=== PATIENT | male | born 1940 | race Caucasian/White ===

== ENCOUNTER 2018-09-29 12:40 | Observation (INO) | payer MEDICARE, OTHER ==
[2018-09-29] MEDS ORDERED: ASPIRIN 81 MG TABLET, CHEWABLE PO ONE (12:42)
[2018-09-29 13:07] LABS: ABSOLUTE EOSINOPHILS # (AUTO) 0.1 10^3/uL (0.0-0.6); ABSOLUTE LYMPHOCYTES (AUTO) 1.5 10^3/uL (0.5-4.7); ABSOLUTE MONOCYTES (AUTO) 0.6 10^3/uL (0.1-1.4); ABSOLUTE NEUT (AUTO) 3.1 10^3/uL (1.7-8.2); BASOPHILS % (AUTO) 0.6 % (0-2); EOSINOPHILS % (AUTO) 1.4 % (0-6); HEMATOCRIT 47.8 % (37.9-51.0); HEMOGLOBIN 16.5 g/dL (13.5-17.0); LYMPHOCYTES % (AUTO) 28.1 % (13-45); MEAN CORPUSCULAR HEMOGLOBIN 31.5 pg (27.0-33.4); MEAN CORPUSCULAR HGB CONC 34.6 g/dL (32.0-36.0); MEAN CORPUSCULAR VOLUME 91 fl (80-97); MONOCYTES % (AUTO) 10.8 % (3-13); PLATELET COUNT 174 10^3/uL (150-450); RED BLOOD COUNT 5.25 10^6/uL (4.35-5.55); RED CELL DISTRIBUTION WIDTH 13.9 % (11.5-14.0); SEGMENTED NEUTROPHILS % (AUTO) 59.1 % (42-78); TOTAL CELLS COUNTED % (AUTO) 100 %; WHITE BLOOD COUNT 5.2 10^3/uL (4.0-10.5)
[2018-09-29] MEDS ORDERED: RINGERS SOLUTION,LACTATED 1,000 ML IV ONE (13:18)
--- NOTE | 2018-09-29 13:18 | RADIOLOGY REPORT (SQ) ---
EXAM DESCRIPTION: CHEST SINGLE VIEW COMPLETED DATE/TIME: 09/29/2018 1:11 pm REASON FOR STUDY: cp COMPARISON: None. EXAM PARAMETERS: NUMBER OF VIEWS: One view. TECHNIQUE: Single frontal radiographic view of the chest acquired. RADIATION DOSE: NA LIMITATIONS: None. FINDINGS: LUNGS AND PLEURA: No opacities, masses or pneumothorax. No pleural effusion. MEDIASTINUM AND HILAR STRUCTURES: No masses. Contour normal. HEART AND VASCULAR STRUCTURES: Heart normal in size. Normal vasculature. BONES: No acute findings. HARDWARE: None in the chest. OTHER: No other significant finding. IMPRESSION: NO ACUTE RADIOGRAPHIC FINDING IN THE CHEST. TECHNICAL DOCUMENTATION: JOB ID: [id number] [employer]- All Rights Reserved Reading location - IP/workstation name: [email or web address]
--- NOTE | 2018-09-29 13:19 | ER Document Report ---
ED General - General Chief Complaint: Chest Pain Stated Complaint: CHEST PAIN Time Seen by Provider: 09/29/18 13:04 Mode of Arrival: Medic Information source: Patient, Relative, Emergency Med Personnel Notes: 77-year-old male presents via EMS with complaint of chest pain, shortness of breath and lightheadedness that occurred just prior to arrival while at [employer]. Patient states that he had a sudden onset of sharp left-sided chest pain. He states the pain was intermittent and occurred 3 separate times. Patient states that when he stood up he felt lightheaded and had blurred vision. Upon EMS arrival they report the patient was in atrial fibrillation with a heart rate of 150. Patient admits to similar chest pain last week which resolved. He does state that he had a stress test last year which he "passed". He denies any recent illness, fever, chills, vomiting, diarrhea, abdominal pain. He takes no medications. He is on a B12 supplement only. Patient did receive aspirin and nitroglycerin prior to arrival. He is currently chest pain-free but is still complaining of shortness of breath. He denies any tobacco use. - HPI Onset: Just prior to arrival Onset/Duration: Intermittent, Gone Quality of pain: Sharp Severity: Moderate Associated symptoms: Chest pain, Chills, Shortness of breath. denies: Diarrhea , Fever, Headache, Leg swelling, Nausea, Vomiting, Sweating, Weakness Exacerbated by: Denies Relieved by: Denies Similar symptoms previously: No Recently seen / treated by doctor: No - Related Data Allergies/Adverse Reactions: acetaminophen [From Percocet] Allergy (Verified 09/29/18 12:55) oxycodone [From Percocet] Allergy (Verified 09/29/18 12:55) Past Medical History - General Information source: Patient, Relative - Social History Smoking Status: Never Smoker Frequency of alcohol use: Occasional Drug Abuse: None Lives with: Spouse/Significant other Family History: Reviewed & Not Pertinent Patient has suicidal ideation: No Patient has homicidal ideation: No - Medical History Medical History: Negative Renal/ Medical History: Denies: Hx Peritoneal Dialysis Past Surgical History: Reports: Hx Cholecystectomy, Hx Orthopedic Surgery Review of Systems - Review of Systems Notes: REVIEW OF SYSTEMS: CONSTITUTIONAL : Denies fever, chills, or sweats. Denies recent illness. Denies weight loss, recent hospitalizations. EENT: Denies visual changes, eye pain. Denies sore throat, oral lesions, difficulty swallowing. CARDIOVASCULAR: Denies palpitations. Denies lower extremity edema. RESPIRATORY: Denies cough. wheezing. GASTROINTESTINAL: Denies abdominal pain or distention. Denies nausea, vomiting , or diarrhea. Denies blood in vomitus, stools, or per rectum. Denies black, tarry stools. Denies constipation. GENITOURINARY: Denies difficulty urinating, painful urination, frequency, blood in urine, testicular pain or penile discharge. MUSCULOSKELETAL: Denies back or neck pain or stiffness. Denies joint pain or swelling. SKIN: Denies rash, lesions or sores. HEMATOLOGIC : Denies easy bruising or bleeding. LYMPHATIC: Denies swollen glands. NEUROLOGICAL: Denies confusion or altered mental status. Denies loss of consciousness. Denies headache. Denies weakness or paralysis. Denies problems difficulty with ambulation, slurred speech. Denies sensory loss, numbness, or tingling. Denies seizures. PSYCHIATRIC: Denies anxiety or stress. Denies depression, suicidal ideation, or Physical Exam - Vital signs Vitals: Resp BP Pulse Ox 26 H 128/75 H 98 09/29/18 12:47 09/29/18 12:47 09/29/18 12:47 - Notes Notes: PHYSICAL EXAMINATION: GENERAL: Well-appearing, well-nourished and in no acute distress. HEAD: Atraumatic, normocephalic. EYES: Pupils equal round and reactive to light, extraocular movements intact, sclera anicteric, conjunctiva are normal. ENT: Nares patent, oropharynx clear without exudates. Moist mucous membranes. NECK: Normal range of motion, supple without lymphadenopathy LUNGS: Breath sounds clear to auscultation bilaterally and equal. No wheezes rales or rhonchi. HEART: Regular rate and rhythm without murmurs ABDOMEN: Soft, nontender, nondistended abdomen. No guarding, no rebound. No masses appreciated. Musculoskeletal: Normal range of motion, no pitting or edema. No cyanosis. NEUROLOGICAL: Cranial nerves grossly intact. Normal speech, normal gait. Normal sensory, motor exams PSYCH: Normal mood, normal affect. SKIN: Warm, Dry, normal turgor, no rashes or lesions noted. Course - Re-evaluation Re-evalutation: Laboratory 09/29/18 09/29/1818 12:49 12:49 12:49 WBC 5.2 RBC 5.25 Hgb 16.5 Hct 47.8 MCV 91 MCH 31.5 MCHC 34.6 RDW 13.9 Plt Count 174 Seg Neutrophils % 59.1 Lymphocytes % 28.1 Monocytes % 10.8 Eosinophils % 1.4 Basophils % 0.6 Absolute Neutrophils 3.1 Absolute Lymphocytes 1.5 Absolute Monocytes 0.6 Absolute Eosinophils 0.1 Absolute Basophils 0.0 D-Dimer Sodium 142.1 Potassium 4.1 Chloride 105 Carbon Dioxide 25 Anion Gap 12 BUN 20 Creatinine 0.82 Est GFR ( Amer) > 60 Est GFR (Non-Af Amer) > 60 Glucose 93 Calcium 10.2 Magnesium Total Bilirubin 1.5 H Direct Bilirubin 0.2 Neonat Total Bilirubin Not Reportable Neonat Direct Bilirubin Not Reportable Neonat Indirect Bili Not Reportable AST 30 ALT 20 L Alkaline Phosphatase 74 Creatine Kinase 297 H CK-MB (CK-2) 2.60 Troponin I < 0.012 NT-Pro-B Natriuret Pep Total Protein 6.7 Albumin 4.1 TSH 09/29/18 09/29/18 09/29/18 12:49 12:49 12:49 WBC RBC Hgb Hct MCV MCH MCHC RDW Plt Count Seg Neutrophils % Lymphocytes % Monocytes % Eosinophils % Basophils % Absolute Neutrophils Absolute Lymphocytes Absolute Monocytes Absolute Eosinophils Absolute Basophils D-Dimer 0.47 Sodium Potassium Chloride Carbon Dioxide Anion Gap BUN Creatinine Est GFR ( Amer) Est GFR (Non-Af Amer) Glucose Calcium Magnesium 2.0 Total Bilirubin Direct Bilirubin Neonat Total Bilirubin Neonat Direct Bilirubin Neonat Indirect Bili AST ALT Alkaline Phosphatase Creatine Kinase CK-MB (CK-2) Troponin I NT-Pro-B Natriuret Pep 42 Total Protein Albumin TSH 09/29/18 12:49 WBC RBC Hgb Hct MCV MCH MCHC RDW Plt Count Seg Neutrophils % Lymphocytes % Monocytes % Eosinophils % Basophils % Absolute Neutrophils Absolute Lymphocytes Absolute Monocytes Absolute Eosinophils Absolute Basophils D-Dimer Sodium Potassium Chloride Carbon Dioxide Anion Gap BUN Creatinine Est GFR ( Amer) Est GFR (Non-Af Amer) Glucose Calcium Magnesium Total Bilirubin Direct Bilirubin Neonat Total Bilirubin Neonat Direct Bilirubin Neonat Indirect Bili AST ALT Alkaline Phosphatase Creatine Kinase CK-MB (CK-2) Troponin I NT-Pro-B Natriuret Pep Total Protein Albumin TSH 3.03 Chest X-Ray 09/29/18 12:42 IMPRESSION: NO ACUTE RADIOGRAPHIC FINDING IN THE CHEST. Chest/Abdomen CTA 09/29/18 14:08 IMPRESSION: No pulmonary emboli. Atelectasis/ scarring at the lung bases. Temp Pulse Resp BP Pulse Ox 97.8 F 56 L 14 126/68 H 97 09/29/18 16:59 18 16:59 09/29/18 16:59 09/29/18 16:59 09/29/18 16:59 77-year-old male presents with complaint of sudden onset of chest pain, shortness of breath and lightheadedness that occurred while at [employer]. EMS reported that upon their arrival patient's rhythm was atrial fibrillation with a heart rate of 150-220. Upon patient's arrival to the emergency department he was placed on manager cardiac cath and EKG was obtained which showed him to be first- degree AV block at a rate of 56. After review of EMS strips I saw no evidence of atrial fibrillation. Patient did receive aspirin and nitro prior to arrival. Vitals were reviewed and patient is afebrile, normotensive. He is visibly dyspneic but with clear breath sounds. During his ED course patient had evidence of Wenckebach type I AV block. Bedside ultrasound was performed to assess for pericardial effusion which was not appreciated. Chest x-ray showed no acute findings. CT of the chest was obtained and showed no evidence of pulmonary embolism. Cardiology consult was obtained and admission recommended. CBC, CMP, TSH, cardiac enzymes are unremarkable. Patient will be admitted for cardiac rule out, echocardiogram. Patient agreeable with admission. Accepted by the hospitalist. 09/29/18 13:59 Bedside ultrasound was performed to assess for pericardial effusion which was absent. 09/29/18 18:24 09/29/18 18:29 09/29/18 18:35 - Vital Signs Vital signs: Temp Pulse Resp BP Pulse Ox 97.8 F 56 L 14 126/68 H 97 09/29/18 16:59 09/29/18 16:59 09/29/18 16:59 09/29/18 16:59 09/29/18 16:59 - Laboratory Result Diagrams: 09/29/18 12:49 09/29/18 12:49 Laboratory results interpreted by me: 09/29/18 12:49 Total Bilirubin 1.5 H ALT 20 L Creatine Kinase 297 H - Diagnostic Test Radiology reviewed: Image reviewed, Reports reviewed - EKG Interpretation by Me EKG shows normal: Sinus rhythm Heart block present: 1st Degree When compared to previous EKG there are: Previous EKG unavailable Critical Care Note - Critical Care Note Total time excluding time spent on procedures (mins): 30 - Minutes of critical care time spent in direct contact evaluating and reevaluating the patient, treating symptoms, reviewing labs and studies and speaking with family and consultants excluding any procedures Discharge - Discharge Clinical Impression: Shortness of breath, Dizziness, Mobitz (type) I (Wenckebach's) atrioventricular block Chest pain Qualifiers: Chest pain type: unspecified Qualified Code(s): R07.9 - Chest pain, unspecified Condition: Good Disposition: ADMITTED INPATIENT Admitting Provider: Hospitalist Unit Admitted: Telemetry
[2018-09-29 13:20] LABS: ALANINE AMINOTRANSFERASE 20 U/L (21-72); ALBUMIN 4.1 g/dL (3.5-5.0); ALKALINE PHOSPHATASE 74 U/L (38-126); ANION GAP 12 (5-19); ASPARTATE AMINO TRANSFERASE 30 U/L (17-59); BILIRUBIN,DIRECT 0.2 mg/dL (0.0-0.4); BILIRUBIN,TOTAL 1.5 mg/dL (0.2-1.3); BLOOD UREA NITROGEN 20 mg/dL (7-20); CALCIUM 10.2 mg/dL (8.4-10.2); CARBON DIOXIDE 25 mmol/L (22-30); CHLORIDE 105 mmol/L (98-107); CREATINE KINASE 297 U/L (55-170); GLUCOSE 93 mg/dL (75-110); POTASSIUM 4.1 mmol/L (3.6-5.0); SODIUM 142.1 mmol/L (137-145); TOTAL PROTEIN 6.7 g/dL (6.3-8.2)
[2018-09-29 13:33] LABS: TROPONIN I < 0.012 ng/mL
--- NOTE | 2018-09-29 15:31 | RADIOLOGY REPORT (SQ) ---
EXAM DESCRIPTION: CTA CHEST COMPLETED DATE/TIME: 09/29/2018 3:21 pm REASON FOR STUDY: sob hypoxic COMPARISON: Chest radiograph TECHNIQUE: CT scan of the chest performed using helical scanning technique with dynamic intravenous contrast injection. Images reviewed with lung, soft tissue and bone windows. Reconstructed coronal and sagittal MPR images reviewed. Additional 3 dimensional post-processing performed to develop Maximal Intensity Projection images (ND P). All images stored on PACS. All CT scanners at this facility use dose modulation, iterative reconstruction, and/or weight based d osing when appropriate to reduce radiation dose to as low as reasonably achievable (ALARA). [facility]: Dose Right [facility]: CareDose [facility]: Dose Right [facility]: Teradose 4D [facility]: [employer] CONTRAST TYPE AND DOSE: Not record not recorded Contrast bolus optimized for the pulmonary arteries. Not diagnostic for the aorta. RENAL FUNCTION: GFR > 60. RADIATION DOSE: CT Rad equipment meets quality standard of care and radiation dose reduction techniq ues were employed. CTDIvol: 30.0 - 39.7 mGy. DLP: 1203 mGy-cm. . LIMITATIONS: None. FINDINGS: LUNGS AND PLEURA: Minimal atelectasis/ scarring at the lung bases. AORTA AND GREAT VESSELS: No aneurysm. Contrast bolus not optimized for the aorta. HEART: No pericardial effusion. No significant coronary artery calcifications. PULMONARY ARTERIES: No emboli visualized in the main pulmonary arteries or the segmental branches. HILAR AND MEDIASTINAL STRUCTURES: No identified masses or abnormal nodes. HARDWARE: None in the chest. UPPER ABDOMEN: No significant findings. Limited exam. THYROID AND OTHER SOFT TISSUES: No masses. No adenopathy. BONES: No acute or significant finding. 3D MIPS: Confirm above findings. OTHER: No other significant finding. IMPRESSION: No pulmonary emboli. Atelectasis/ scarring at the lung bases. COMMENT: Quality ID # [id number]: Final reports with documentation of one or more dose reduction techniques (e.g., Automated exposure control, adjustment of the mA and/or kV according to patient size, use of iterative reconstruction technique) TECHNICAL DOCUMENTATION: JOB ID: [id number] [employer]- All Rights Reserved Reading location - IP/workstation name: [email or web address]
--- NOTE | 2018-09-29 16:19 | PDOC CONSULTATION ---
Consultation Consult Date: 09/29/18 Consult reason:: Cardiac arrhythmia and chest pain History of Present Illness Admission Date/PCP: 09/29/18 16:00 SAULO PENNY MD Patient complains of: Chest pain History of Present Illness: SAULO HYMAN is a 77 year old male Here is a very pleasant 77-year-old male with past medical history of obstructive sleep apnea on CPAP therapy, arthritis and no significant past medical history of hypertension or diabetes or hyperlipidemia or known coronary artery disease comes in with complaints of sudden onset left-sided chest pain while he was in the [employer] which got progressively worse and EMS was called. According to the ER notes EMS found the patient in atrial fibrillation with rapid ventricular rate. According to the patient he had chest pain for more than 10 minutes and received aspirin and nitroglycerin by the EMS. He claims that the pain resolved spontaneously. He was dizzy during the episode. He denies any previous history of similar intensity and character pain in his chest and otherwise claims that he is very active and regularly mows his lawn and walks a few miles a day. He is and lives with his . He claims that he has sleep apnea and uses a CPAP and last year had a stress test after he was having some vague symptoms of fatigue and weakness. He was told that his stress test was negative. He denies history of cigarette smoking or alcohol abuse but drinks wine occasionally. His parents had cardiovascular disease but not at an early age. He claims to be chest pain-free at this time. He also denies any previous history of palpitations or dizziness or any passing out episodes. Past Medical History Cardiac Medical History: Reports: None Pulmonary Medical History: Reports: Sleep Apnea EENT Medical History: Reports: None Neurological Medical History: Reports: None Endocrine Medical History: Reports: None Renal/ Medical History: Reports: None Malignancy Medical History: Reports: None GI Medical History: Reports: None Musculoskeltal Medical History: Reports: Arthritis Skin Medical History: Reports: None Psychiatric Medical History: Reports: None Traumatic Medical History: Reports: None Hematology: Reports: None Infectious Medical History: Reports: None Past Surgical History Past Surgical History: Reports: Cholecystectomy, Orthopedic Surgery Social History Lives with: Spouse/Significant other Smoking Status: Never Smoker Family History Family History: Reviewed & Not Pertinent Parental Family History Reviewed: Yes - Parents had cardiovascular disease. Children Family History Reviewed: Yes Sibling(s) Family History Reviewed.: Yes Medication/Allergy Allergies/Adverse Reactions: acetaminophen [From Percocet] Allergy (Verified 09/29/18 12:55) oxycodone [From Percocet] Allergy (Verified 09/29/18 12:55) Review of Systems Constitutional: ABSENT: chills, fever(s), headache(s), weight gain, weight loss Eyes: ABSENT: visual disturbances Ears: ABSENT: hearing changes Cardiovascular: PRESENT: chest pain Respiratory: ABSENT: cough, hemoptysis Gastrointestinal: ABSENT: abdominal pain, constipation, diarrhea, hematemesis, hematochezia, nausea, vomiting Genitourinary: ABSENT: dysuria, hematuria Musculoskeletal: ABSENT: joint swelling Integumentary: ABSENT: rash, wounds Neurological: PRESENT: dizziness Psychiatric: ABSENT: anxiety, depression, homidical ideation, suicidal ideation Endocrine: ABSENT: cold intolerance, heat intolerance, polydipsia, polyuria Hematologic/Lymphatic: ABSENT: easy bleeding, easy bruising Physical Exam Vital Signs: Temp Pulse Resp BP Pulse Ox 97.7 F 18 137/73 H 96 09/29/18 12:58 09/29/18 16:00 09/29/18 14:01 09/29/18 16:00 General appearance: PRESENT: no acute distress Head exam: PRESENT: atraumatic, normocephalic Eye exam: PRESENT: conjunctiva pink, EOMI, PERRLA. ABSENT: scleral icterus Ear exam: PRESENT: normal external ear exam Mouth exam: PRESENT: moist, tongue midline Neck exam: ABSENT: carotid bruit, JVD, lymphadenopathy, thyromegaly Respiratory exam: PRESENT: clear to auscultation wilda. ABSENT: rales, rhonchi, wheezes Cardiovascular exam: PRESENT: RRR. ABSENT: diastolic murmur, rubs, systolic murmur Pulses: PRESENT: normal dorsalis pedis pul GI/Abdominal exam: PRESENT: normal bowel sounds, soft. ABSENT: distended, guarding, mass, organolmegaly, rebound, tenderness Rectal exam: PRESENT: deferred Extremities exam: PRESENT: full ROM. ABSENT: calf tenderness, clubbing, pedal edema Neurological exam: PRESENT: alert, awake, oriented to person, oriented to place , oriented to time, oriented to situation, CN II-XII grossly intact. ABSENT: motor sensory deficit Psychiatric exam: PRESENT: appropriate affect, normal mood. ABSENT: homicidal ideation, suicidal ideation Skin exam: PRESENT: dry, intact, warm. ABSENT: cyanosis, rash Results EKG Comments: First EKG shows sinus rhythm with first-degree AV block with right bundle branch block pattern and another EKG shows sinus bradycardia with second-degree type I AV block, Wenckebach's Pattern. Impressions: Chest X-Ray 09/29/18 12:42 IMPRESSION: NO ACUTE RADIOGRAPHIC FINDING IN THE CHEST. Chest/Abdomen CTA 09/29/18 14:08 IMPRESSION: No pulmonary emboli. Atelectasis/ scarring at the lung bases. Status: Image reviewed by me Assessment & Plan - Diagnosis (1) Chest pain Qualifiers: Chest pain type: unspecified Qualified Code(s): R07.9 - Chest pain, unspecified Is this a current diagnosis for this admission?: Yes - Notes Notes: Patient appears euvolemic on exam with blood pressure in normal range at this time. Review of monitor tracings as well as EKGs did not reveal any evidence of atrial fibrillation but did show first-degree AV block with intermittent Wenckebach's block. Patient symptoms are concerning for angina and we recommend admission for ruling out acute coronary syndrome and monitoring his cardiac rhythm on telemetry to look for any arrhythmias. Will recommend a transthoracic echocardiogram to evaluate systolic and diastolic function as well as checking a fasting lipid panel. Continue on aspirin as antiplatelet therapy and consider statin therapy for risk factor reduction. If he is ruled out for acute coronary syndrome then he should be considered for noninvasive ischemia evaluation. Dr. Prakash will resume care in the morning tomorrow to evaluate patient and pursue further workup. Would avoid any rate limiting medical therapy at this point of time in view of intermittent bradyarrhythmia. - Time Time Spent: 50 to 70 Minutes
[2018-09-29] MEDS ORDERED: NITROGLYCERIN 0.4 MG/TAB 25 TAB/BOTTLE SL PRN (16:30)
--- NOTE | 2018-09-29 16:53 | PDOC H&P ---
History of Present Illness Admission Date/PCP: 09/29/18 16:00 SAULO PENNY MD Patient complains of: chest pain History of Present Illness: SAULO HYMAN is a 77 year old male who denies significant past medical history aside from a history of bilateral nephrolithiasis, history of lithotripsy and obstructive sleep apnea compliant on CPAP who was brought in due to chest pain. Patient denies premature CAD in the family. Patient is also non-smoker and is only an occasional alcohol drinker. No previous history of CAD. He says he had a normal stress test more than a year ago. Patient was apparently sitting at spiritism at a mass around 9:30 am when he suddenly had left-sided chest pain which she described as a stabbing pain, 5-6/ 10 intensity, initially radiating to the left arm. He says it is completely resolved after a minutes but recurred while at spiritism. He subsequently developed associated shortness of breath and lightheadedness. He also had generalized weakness. EMS was called and reportedly in route to the hospital, patient went into atrial fibrillation with a heart rate of 150s. This was reportedly noted on the monitor with no printed or documented test strips of A. fib. In the ER, patient was bradycardic with lowest heart rate at 46. His EKG showed bradycardia in the 50s with second-degree AV block type I. First troponin is normal. Cardiology was called from the ER and evaluated the patient. Hospitalist service was called for admission. Patient was given aspirin and nitro in route by EMS. Upon encounter, patient is currently chest pain-free and denies but he did mention that he did not properly from nitro or aspirin administered by EMS this morning. Past Medical History Cardiac Medical History: Reports: None Pulmonary Medical History: Reports: Sleep Apnea EENT Medical History: Reports: None Neurological Medical History: Reports: None Endocrine Medical History: Reports: None Renal/ Medical History: Reports: None Malignancy Medical History: Reports: None GI Medical History: Reports: None Musculoskeltal Medical History: Reports: Arthritis Skin Medical History: Reports: None Psychiatric Medical History: Reports: None Traumatic Medical History: Reports: None Hematology: Reports: None Infectious Medical History: Reports: None Past Surgical History Past Surgical History: Reports: Cholecystectomy, Orthopedic Surgery Social History Lives with: Spouse/Significant other Smoking Status: Never Smoker Family History Family History: Reviewed & Not Pertinent Parental Family History Reviewed: Yes - no premature CAD Children Family History Reviewed: No Sibling(s) Family History Reviewed.: No Medication/Allergy Allergies/Adverse Reactions: acetaminophen [From Percocet] Allergy (Verified 09/29/18 12:55) oxycodone [From Percocet] Allergy (Verified 09/29/18 12:55) Review of Systems All systems: reviewed and no additional remarkable complaints except as stated - As mentioned in HPI Physical Exam Vital Signs: Temp Pulse Resp BP Pulse Ox 97.7 F 17 148/67 H 97 09/29/18 12:58 09/29/18 16:10 09/29/18 16:10 09/29/18 16:10 General appearance: PRESENT: no acute distress, well-developed, well-nourished Head exam: PRESENT: atraumatic, normocephalic Eye exam: PRESENT: conjunctiva pink, EOMI, PERRLA. ABSENT: scleral icterus Ear exam: PRESENT: normal external ear exam Mouth exam: PRESENT: moist, tongue midline Neck exam: ABSENT: carotid bruit, JVD, lymphadenopathy, thyromegaly Respiratory exam: PRESENT: clear to auscultation wilda. ABSENT: rales, rhonchi, wheezes Cardiovascular exam: PRESENT: bradycardia. ABSENT: systolic murmur Pulses: PRESENT: normal dorsalis pedis pul GI/Abdominal exam: PRESENT: normal bowel sounds, soft. ABSENT: distended, guarding, mass, organolmegaly, rebound, tenderness Rectal exam: PRESENT: deferred Neurological exam: PRESENT: alert, awake, oriented to person, oriented to place , oriented to time, oriented to situation, CN II-XII grossly intact. ABSENT: motor sensory deficit Results Impressions: Chest X-Ray 09/29/18 12:42 IMPRESSION: NO ACUTE RADIOGRAPHIC FINDING IN THE CHEST. Chest/Abdomen CTA 09/29/18 14:08 IMPRESSION: No pulmonary emboli. Atelectasis/ scarring at the lung bases. Assessment & Plan - Diagnosis (1) Chest pain Qualifiers: Chest pain type: unspecified Qualified Code(s): R07.9 - Chest pain, unspecified Is this a current diagnosis for this admission?: Yes Plan: EKG showed bradycardia in the 50s with second-degree AV block. First troponin is normal. Patient is currently chest pain-free. Cardiology has evaluated patient in the ER. We will continue to cycle troponins and EKG. Will admit patient to telemetry. Continue aspirin and nitro as needed. (2) Bradycardia Is this a current diagnosis for this admission?: Yes Plan: EKG does show second-degree type I AV block changes. Blood pressures have been stable no episode of hypotension. Cardiology following. Will also check TSH. (3) YENI (obstructive sleep apnea) Is this a current diagnosis for this admission?: Yes Plan: CPAP at night. - Time Time Spent: 30 to 50 Minutes
[2018-09-29] MEDS: HEPARIN SOD (PORCINE) 5,000 UNIT/ML 1 ML SYRINGE SUBCUT SCH (22:06)
--- NOTE | 2018-09-29 22:13 | EKG REPORT ---
SEVERITY:- ABNORMAL ECG - SINUS RHYTHM FIRST DEGREE AV BLOCK RIGHT BUNDLE BRANCH BLOCK : Confirmed by: Jojo Godoy 29-Sep-2018 22:12:40
--- NOTE | 2018-09-29 22:14 | EKG REPORT ---
SEVERITY:- ABNORMAL ECG - SINUS RHYTHM FIRST DEGREE AV BLOCK RIGHT BUNDLE BRANCH BLOCK : Confirmed by: Jojo Godoy 29-Sep-2018 22:14:16
--- NOTE | 2018-09-29 22:14 | EKG REPORT ---
SEVERITY:- ABNORMAL ECG - SINUS RHYTHM MOBITZ TYPE 1, 2ND DEGREE AV BLOCK RIGHT BUNDLE BRANCH BLOCK : Confirmed by: Jojo Godoy 29-Sep-2018 22:13:59
[2018-09-29] MEDS: ATORVASTATIN CALCIUM 40 MG TABLET PO SCH (23:06)
[2018-09-30 02:41] LABS: APPEARANCE,URINE CLEAR; BILIRUBIN,URINE NEGATIVE (NEGATIVE); COLOR,URINE YELLOW; GLUCOSE, URINE NEGATIVE (NEGATIVE); KETONES,URINE NEGATIVE (NEGATIVE); LEUKOCYTE ESTERASE,URINE NEGATIVE (NEGATIVE); NITRITE,URINE NEGATIVE (NEGATIVE); PROTEIN,URINE NEGATIVE (NEGATIVE); URINE SPECIFIC GRAVITY 1.026; UROBILINOGEN,URINE NEGATIVE mg/dL (<2.0)
[2018-09-30] MEDS: HEPARIN SOD (PORCINE) 5,000 UNIT/ML 1 ML SYRINGE SUBCUT SCH ×3 (06:17→22:04)
--- NOTE | 2018-09-30 06:54 | EKG REPORT ---
SEVERITY:- ABNORMAL ECG - SINUS RHYTHM FIRST DEGREE AV BLOCK RIGHT BUNDLE BRANCH BLOCK : Confirmed by: Jojo Godoy 30-Sep-2018 06:53:20
--- NOTE | 2018-09-30 08:35 | Physician Advisory Note ---
Physician Advisor ProgressNote .: Pursuant to the plan for [facility], I have reviewed the medical record for this patient. Physician Advisor Statement: Please document: 1. Medical necessity: Clinical concerns that made attending CERTAIN at time of adm that this Medicare pt would definitely require 2 medically necessary MNs in hospital care & monitoring (&/or reasons that today the pt cannot safely go home) - or please let Utilization Mgmt nurse know if Obs status was actually intended at time of adm order. Status points: 77yo Medicare pt w/YENI/CPAP, came in after episode of CP/ dizziness/syncope, w/evidence of Wenkebach block on EKG & development of Afib in 150s [address] w/EMS but bradycardia as low as 46 in ED. Subsequent HRs in 50s-60s. ACS r/o'd. For ECHO & further eval by cardiology today. See above. - If pt can be safely d/c'd home later today with further eval as outpt, then status should be Obs. - If pt requires [or, attending can document reasons that at time of adm order attending fully expected pt to require], a 2nd medically necessary MN of hospital care & monitoring, w/clinical reasons documented, then approp for Inpt. Thanks, CK
[2018-09-30] MEDS: ASPIRIN 81 MG TABLET, CHEWABLE PO SCH (10:25)
[2018-09-30] MEDS: DOCUSATE SODIUM 100 MG CAPSULE PO SCH ×2 (10:25→18:11)
--- NOTE | 2018-09-30 14:27 | PDOC PROGRESS REPORT ---
Subjective Progress Note for:: 09/30/18 Subjective:: SAULO HYMAN is a 77 year old male who denies significant past medical history aside from a history of bilateral nephrolithiasis, history of lithotripsy and obstructive sleep apnea compliant on CPAP who was brought in due to chest pain. He reportedly had Afib en route. In the ER, patient was bradycardic with lowest heart rate at 46. His EKG showed bradycardia in the 50s with second-degree AV block type I. First troponin is normal. Cardiology was called from the ER and evaluated the patient. No acute event overnight. Heart rate running in the high 50s to 60s. He has been chest pain free since admission. Denies SOB or dizziness. Await cardio recommendation for possible stress testing. Reason For Visit: CHEST PAIN,BRADYCARDIA Physical Exam Vital Signs: Temp Pulse Resp BP Pulse Ox 97.9 F 63 20 139/70 H 99 09/30/18 12:03 09/30/18 12:03 09/30/18 12:03 09/30/18 12:03 09/30/18 12:03 Intake & Output 09/29/18 09/30/18 10/01/18 06:59 06:59 06:59 Intake Total 650 Output Total 500 Balance 150 Weight 261 lb 11.019 oz General appearance: PRESENT: no acute distress, well-developed, well-nourished Head exam: PRESENT: atraumatic, normocephalic Eye exam: PRESENT: conjunctiva pink, EOMI, PERRLA. ABSENT: scleral icterus Ear exam: PRESENT: normal external ear exam Mouth exam: PRESENT: moist, tongue midline Neck exam: ABSENT: carotid bruit, JVD, lymphadenopathy, thyromegaly Respiratory exam: PRESENT: clear to auscultation wilda. ABSENT: rales, rhonchi, wheezes Cardiovascular exam: PRESENT: RRR. ABSENT: diastolic murmur, rubs, systolic murmur Pulses: PRESENT: normal dorsalis pedis pul GI/Abdominal exam: PRESENT: normal bowel sounds, soft. ABSENT: distended, guarding, mass, organolmegaly, rebound, tenderness Rectal exam: PRESENT: deferred Extremities exam: PRESENT: full ROM. ABSENT: calf tenderness, clubbing, pedal edema Neurological exam: PRESENT: alert, awake, oriented to person, oriented to place , oriented to time, oriented to situation, CN II-XII grossly intact. ABSENT: motor sensory deficit Results Laboratory Results: 09/30/18 02:25 Urine Color YELLOW Urine Appearance CLEAR Urine pH 7.0 Ur Specific [place] 1.026 Urine Protein NEGATIVE Urine Glucose (UA) NEGATIVE Urine Ketones NEGATIVE Urine Blood NEGATIVE Urine Nitrite NEGATIVE Ur Leukocyte Esterase NEGATIVE Urine WBC (Auto) 0 Urine RBC (Auto) 1 09/29/18 09/30/18 19:10 01:06 Troponin I < 0.012 0.016 Impressions: Chest X-Ray 09/29/18 12:42 IMPRESSION: NO ACUTE RADIOGRAPHIC FINDING IN THE CHEST. Chest/Abdomen CTA 09/29/18 14:08 IMPRESSION: No pulmonary emboli. Atelectasis/ scarring at the lung bases. Assessment & Plan - Diagnosis (1) Chest pain Qualifiers: Chest pain type: unspecified Qualified Code(s): R07.9 - Chest pain, unspecified Is this a current diagnosis for this admission?: Yes Plan: EKG showed bradycardia in the 50s with second-degree AV block type I. Troponins normal, third one was 0.016. Patient is currently chest pain-free. Continue aspirin and nitro as needed. Discussed with cardiology. Will schedule patient for stress testing. (2) Bradycardia Is this a current diagnosis for this admission?: Yes Plan: EKG does show second-degree type I AV block changes. Blood pressures have been stable no episode of hypotension. Cardiology following. TSH normal. (3) YENI (obstructive sleep apnea) Is this a current diagnosis for this admission?: Yes Plan: CPAP at night. - Time Time Spent with patient: 15-24 minutes
--- NOTE | 2018-09-30 21:35 | Progress Note ---
Provider Note Provider Note: CARDIOLOGY PROGRESS NOTES by Dr. Jodee Prakash on 09/30/2018. SUBJECTIVE: The patient has no further chest pain or chest discomfort. He denies any shortness of breath. There is no PND, or orthopnea or leg edema. There is no palpitations. There is no arrhythmias seen on the monitor. There is no leg edema. There is no dizziness, near-syncope or syncope. There is no TIA CVA symptoms. He has a family history of premature coronary artery disease , and multiple family members, but no history of sudden in the family. PHYSICAL EXAMINATION: The patient is moderately obese. He is in no acute distress. He is well-groomed. Selected Entries 09/30/18 16:08 Temperature 97.7 F Temperature Oral Source Pulse Rate 66 Respiratory 19 Rate Blood Pressure 129/76 H Blood Pressure 93 Mean BP Location Right Arm BP Position Supine O2 Sat by Pulse 93 Oximetry Oxygen Delivery Room Air Method HEAD: Is atraumatic, normocephalic. EYES: Pupils are equal round regular reactive to light and accommodation. Extraocular movements are normal. There is no clinical pallor. There is no scleral icterus. ENT: Is negative. NECK: Is supple. There is no JVD carotids are equal there is no bruits. There is no lymphadenopathy. There is no goiter. There is no accessory muscles of respiration use. Trachea central. HEART: S1-S2 is heard. There is no S3 gallop there is no S4 gallop there is systolic murmur left sternal border and apex there is no rub. ABDOMEN: Is obese. There is no hepatosplenomegaly. Bowel sounds are well heard. There is no tender areas of masses. EXTREMITIES: Femorals are deep. Femorals are slightly diminished. Leg Pulses are diminished. There is no DVT or cellulitis. There is no pedal edema. There is no cyanosis or clubbing ALTERATIONS EXPERT: The patient is conscious awake alert oriented x3 with no focal deficits. PSYCHIATRIC: The patient judgment and insight are intact. His affect is normal. 09/29/18 09/30/18 19:10 01:06 Troponin I < 0.012 0.016 IMPRESSION/RECOMMENDATION: 1. Chest pain: No evidence of myocardial infarction. Troponin I's have been negative. No acute EKG changes. Recommend getting a IV Lexiscan Cardiolite stress test in the a.m. 2. Obstructive sleep apnea on CPAP. Continue the same. 3. Obesity. 4.? Lipid status: Will get lipid levels. 5. Strong history of premature coronary artery disease and family. Medications reviewed. Management plan discussed with attending physician. Discussed with the patient patient's . The procedure risks and benefits and complication of stress test have been discussed. Medical decision making is of moderate complexity. 40 minutes spent on this patient more than 50% of time spent in direct patient care. The patient is a full code. His is a surrogate healthcare decision maker.
[2018-09-30] MEDS: ATORVASTATIN CALCIUM 40 MG TABLET PO SCH (22:04)
--- NOTE | 2018-10-01 04:21 | Physician Advisory Note ---
Physician Advisor ProgressNote .: Pursuant to the plan for [facility], I have reviewed the medical record for this patient. Physician Advisor Statement: Please document: 1. Medical necessity: please document (r.e. points below) if pt's stress testing was delayed due to PATIENT ISSUES - otherwise, it will be assumed that pt's 2nd MN in hospital was due to facility logistical issues/convenience, which would not be a reason for Inpt status. Status points: 77yo Medicare pt w/YENI/CPAP, came in after episode of CP/ dizziness/syncope, w/evidence of Wenkebach block on EKG & development of Afib in [address] w/EMS but bradycardia as low as 46 in ED. Subsequent HRs in 50s-60s. ACS r/o'd. For ECHO & further eval by cardiology today. - If pt's stress testing was not done on 09/30 due to PATIENT ISSUES (such as wanting to monitor longer for further arrhythmias or something before subjecting pt to stress testing, ...), then appropriate for Inpt status as of PM. - If pt's stress testing was not done on 09/30 due to FACILITY ISSUES (such as logistically couldn't get him worked into the stress testing schedule on 09/30 even tho' pt was felt safe to take to stress testing on 09/30 & could have gone home 1210 PM if that were the case), then should remaiin Obs status. - If stress testing was not done on 09/30 due to FACILITY ISSUES, but s omething concerning is found on stress testing that requires ongoing hospital care/eval for another night, or pt develops a new or recurrent acute issue requiring ongoing hospital care/eval for another night, then appropriate to change to Inpatient status as of 10/01. Thanks, CK
[2018-10-01 05:50] LABS: TRIGLYCERIDES 115 mg/dL (<150)
[2018-10-01 06:00] LABS: DIRECT LDL 68 mg/dL (<100)
[2018-10-01] MEDS: HEPARIN SOD (PORCINE) 5,000 UNIT/ML 1 ML SYRINGE SUBCUT SCH ×2 (06:33→13:29)
[2018-10-01] MEDS: DOCUSATE SODIUM 100 MG CAPSULE PO SCH (09:06)
[2018-10-01] MEDS: ASPIRIN 81 MG TABLET, CHEWABLE PO SCH (09:06)
[2018-10-01 12:09] VITALS: BP 137/71
[2018-10-01] MEDS ORDERED: REGADENOSON INJ 0.4 MG/5 ML DISP.SYRIN IV ONE (13:46)
--- NOTE | 2018-10-01 14:03 | PDOC DISCHARGE SUMMARY ---
General - Admit/Disc Date/PCP Admission Date/Primary Care Provider: 09/29/18 16:00 SAULO PENNY MD Discharge Date: 10/01/18 - Discharge Diagnosis (1) Chest pain Is this a current diagnosis for this admission?: Yes (3) YENI (obstructive sleep apnea) Is this a current diagnosis for this admission?: Yes - Additional Information Discharge Diet: As Tolerated Discharge Activity: Activity As Tolerated Home Medications: Cyanocobalamin (Vitamin B-12) [Vitamin B-12 1000 mcg Tablet] 1,000 mcg PO DAILY 09/30/18 History of Present Illness History of Present Illness: SAULO HYMAN is a 77 year old male who denies significant past medical history aside from a history of bilateral nephrolithiasis, history of lithotripsy and obstructive sleep apnea compliant on CPAP who was brought in due to chest pain. Patient denies premature CAD in the family. Patient is also non-smoker and is only an occasional alcohol drinker. No previous history of CAD. He says he had a normal stress test more than a year ago. Patient was apparently sitting at sabianism at a mass around 9:30 am when he suddenly had left-sided chest pain which she described as a stabbing pain, 5-6/ 10 intensity, initially radiating to the left arm. He says it is completely resolved after a minutes but recurred while at sabianism. He subsequently developed associated shortness of breath and lightheadedness. He also had generalized weakness. EMS was called and reportedly in route to the hospital, patient went into atrial fibrillation with a heart rate of 150s. This was reportedly noted on the monitor with no printed or documented test strips of A. fib. In the ER, patient was bradycardic with lowest heart rate at 46. His EKG showed bradycardia in the 50s with second-degree AV block type I. First troponin is normal. Cardiology was called from the ER and evaluated the patient. Hospitalist service was called for admission. Patient was given aspirin and nitro in route by EMS. Upon encounter, patient is currently chest pain-free and denies but he did mention that he did not properly from nitro or aspirin administered by EMS this morning. Hospital Course Hospital Course: Chest pain EKG showed bradycardia in the 50s with second-degree AV block type I. Troponins normal. Chest test was done today and is normal. Follow-up with cardiology outpatient. Echocardiogram to be done outpatient. Bradycardia EKG does show second-degree type I AV block changes. Blood pressures have been stable no episode of hypotension. TSH normal. Outpatient follow-up with cardiology. YENI (obstructive sleep apnea) CPAP at night. Physical Exam Vital Signs: Temp Pulse Resp BP Pulse Ox 97.6 F 64 15 137/71 H 90 L 10/01/18 11:31 10/01/18 11:31 10/01/18 11:31 10/01/18 11:31 10/01/18 11:31 Intake & Output 09/30/18 10/01/18 10/02/18 06:59 06:59 06:59 Intake Total 650 1226 Output Total 500 Balance 150 1226 Weight 261 lb 11.019 oz 259 lb 11.272 oz General appearance: PRESENT: no acute distress, cooperative Head exam: PRESENT: atraumatic, normocephalic Eye exam: PRESENT: EOMI. ABSENT: conjunctival injection Mouth exam: PRESENT: neck supple Neck exam: ABSENT: meningismus Respiratory exam: PRESENT: clear to auscultation wilda. ABSENT: accessory muscle use Cardiovascular exam: PRESENT: RRR GI/Abdominal exam: PRESENT: ascites, soft. ABSENT: tenderness Rectal exam: PRESENT: deferred Neurological exam: PRESENT: alert, awake, oriented to person, oriented to place , oriented to time, oriented to situation Psychiatric exam: ABSENT: agitated, anxious Results Laboratory Results: 10/01/18 04:56 Triglycerides 115 Cholesterol 121.10 LDL Cholesterol Direct 68 VLDL Cholesterol 23.0 HDL Cholesterol 44 09/29/18 09/30/18 19:10 01:06 Troponin I < 0.012 0.016 Impressions: Chest X-Ray 09/29/18 12:42 IMPRESSION: NO ACUTE RADIOGRAPHIC FINDING IN THE CHEST. Chest/Abdomen CTA 09/29/18 14:08 IMPRESSION: No pulmonary emboli. Atelectasis/ scarring at the lung bases. Qualifiers - * PATIENT BEING DISCHARGED WITH ANY OF THE FOLLOWING DIAGNOSIS: No
--- NOTE | 2018-10-01 23:06 | DRAGON STRESS TEST REPORT ---
Intravenous Lexiscan Cardiolite stress test using single photon emmision computerized tomography. Date of procedure: 10/01/2018. Ordering Provider: Dr. Jodee Prakash. Patient's status: In Patient. Indication: Chest pain. Coronary risk factors: Age, and family history of coronary artery disease prematurely. Resting EKG: Sinus Rhythm. Right Bundle Branch Block Pattern. Stress EKG: No changes of ischemia. The patient had no chest pain or discomfort, and there were no arrhythmias seen. Reason for termination: Protocol. Conclusions: Normal EKG and hemodynamic response to IV Lexiscan. Nuclear data: At rest the patient was given 16.02 millicuries of technetium 99m sestamibi injected intravenously. As per protocol rest non gated SPECT images were obtained. Subsequently the patient was given intravenous Lexiscan at a dose of 0.4 mg in 5 mL intravenously, followed by flush with normal saline. Subsequently the stress dose of 45.5 millicuries of technetium 99m sestamibi was injected intravenously. As per protocol stress gated images were obtained. Nuclear interpretation: Review of images showed that all segments of the myocardium had normal perfusion at rest, and normal perfusion post stress with IV Lexiscan. All segments of the myocardium had normal motion, contraction, and thickening by gated study. T. I D. ratio was normal at 1.12. There is no transient ischemic calcification of the left ventricle. Computer read rest, and stress left ventricular ejection fraction were 59 %, and 57 %, respectively. Conclusion: 1. There is no scintigraphic evidence of Lexiscan induced myocardial ischemia. 2. There is no scintigraphic evidence of myocardial infarction/scar. Recommendations: Aggressive risk factor modification, and treating the underlying co- morbidities. MTDD
== END 2018-10-01 15:43 | disposition home or self-care (01) ==
LOC: ER 12:40 → OBSVTOIN 16:00 → INTOOBSV 16:00 → EH 16:00 → 4W 16:56
PROVIDERS: ADMIT Internal Medicine; ATTEND Internal Medicine
DX: R07.9 Chest pain, unspecified (principal); G47.33 Obstructive sleep apnea (adult) (pediatric); R00.1 Bradycardia, unspecified; R06.02 Shortness of breath; R42 Dizziness and giddiness; I48.91 Unspecified atrial fibrillation; R53.1 Weakness; I44.1 Atrioventricular block, second degree; M19.90 Unspecified osteoarthritis, unspecified site; I25.10 Atherosclerotic heart disease of native coronary artery without angina pectoris; Z90.49 Acquired absence of other specified parts of digestive tract; Z82.49 Family history of ischemic heart disease and other diseases of the circulatory system; Z87.442 Personal history of urinary calculi; Z98.890 Other specified postprocedural states
CPT/HCPCS: 93005 ×3; 99291; 96360; 36415 ×2; 82553; 82550; 83735; 84443; 85025; 80053; 81001; 84484 ×2; 85379; 80061; 83880; 93017; 71045; 78452; 71275; 93010 ×2; 94660 ×2; G0378 ×4; A9500; J2785; A9270 ×4; J1644 ×3; J7120; Q9969